=== PATIENT | male | born 1970 | race African-American/Black ===

== ENCOUNTER 2016-08-23 10:09 | Inpatient (IN) | payer OTHER ==
[2016-08-23 10:24] VITALS: BMI 27.3
--- NOTE | 2016-08-23 10:48 | HP ---
CIWA Score - CIWA Score Nausea/Vomitin-No Nausea/No Vomiting Muscle Tremors: 4-Moderate,w/Arms Extend Anxiety: 5 Agitation: 3 Paroxysmal Sweats: 1-Minimal Palms Moist Orientation: 0-Oriented Tacttile Disturbances: 3-Moderate Itch/Numb/Burn Auditory Disturbances: 0-None Visual Disturbances: 0-None Headache: 0-None Present CIWA-Ar Total Score: 16 Admission ROS BHS - HPI Chief Complaint: DETOX TX FOR ALCOHOL DEPENDENCE Allergies/Adverse Reactions: Allergies Allergy/AdvReac Type Severity Reaction Status Date / Time No Known Allergies Allergy Verified 08/23/16 10:33 History of Present Illness: 46 Y/O AA/MALE WITH A HX OF ALCOHOL DEPENDENCE SEEKING DETOX TX Exam Limitations: No Limitations - Ebola screening Have you traveled outside of the country in the last 21 days: No Have you had contact with anyone from an Ebola affected area: No Have you been sick,other than usual withdrawal symptoms: No Do you have a fever: No - Review of Systems Constitutional: Chills, Night Sweats, Weight Stable EENT: reports: Blurred Vision (DUE TO ELEVATED BP.), Tearing, Nose Congestion, Dental Problems (MISSING TOOTH) Respiratory: reports: No Symptoms reported Cardiac: reports: Lightheadedness (WHEN DRINKING TOO MUCH/WITHDRAWING) GI: reports: Diarrhea, Nausea, Poor Fluid Intake, Vomiting : reports: No Symptoms Reported Musculoskeletal: reports: Back Pain, Muscle Pain Integumentary: reports: No Symptoms Reported Neuro: reports: Headache, Tremors, Unsteady Gait, Dizziness Endocrine: reports: No Symptoms Reported Hematology: reports: No Symptoms Reported Psychiatric: reports: Orientated x3, Agitated, Anxious Other Systems: Reviewed and Negative Patient History - Patient Medical History Hx Anemia: No Hx Asthma: No Hx Chronic Obstructive Pulmonary Disease (COPD): No Hx Cardiac Disorders: No Hx Hypertension: Yes (ON NORVASC 10 MG DAILY) Hx Hypercholesterolemia: No HX Cerebrovascular Accident: No Hx Seizures: No Hx Diabetes: No Hx Gastrointestinal Disorders: No Hx Genitourinary Disorders: No Hx Sexually Transmitted Disorders: No Hx Renal Disease (ESRD): No Hx Thyroid Disease: No Hx Human Immunodeficiency Virus (HIV): No (NEGATIVE HX) Hx Hepatitis C: No Hx Depression: No Hx Suicide Attempt: No (DENIES) Hx Schizophrenia: No - Patient Surgical History Past Surgical History: No Hx Neurologic Surgery: No Hx Cataract Extraction: No Hx Cardiac Surgery: No Hx Lung Surgery: No Hx Breast Surgery: No Hx Breast Biopsy: No Hx Abdominal Surgery: No Hx Appendectomy: No Hx Cholecystectomy: No Hx Genitourinary Surgery: No Hx Orthopedic Surgery: No Anesthesia Reaction: No - PPD History Previous Implant?: Yes Documented Results: Negative w/o proof Implanted On Prior [facility] Admission?: No Results: TBD PPD to be Administered?: Yes - Reproductive History Patient is a Female of Child Bearing Age (11 -55 yrs old): No (MALE) - Smoking Cessation Smoking history: Current every day smoker Have you smoked in the past 12 months: Yes Aproximately how many cigarettes per day: 10 Hx Chewing Tobacco Use: No Initiated information on smoking cessation: Yes 'Breaking Loose' booklet given: 08/23/16 - Substance & Tx. History Hx Alcohol Use: Yes (BEER/VODKA) Hx Substance Use: No Substance Use Type: Alcohol Hx [facility] - Substances Abused Alcohol Route: Oral Frequency: Daily Amount used: 8 40 OZ BEERS Age of first use: 16 Date of Last Use: 08/23/16 Family Disease History - Family Disease History Family Disease History: Other: Father (HTN-), Mother (HTN-) Admission Physical Exam S - Vital Signs Vital Signs: Vital Signs - 24 hr 08/23/16 10:19 Temperature 97 F L Pulse Rate 102 H Respiratory 20 Rate Blood Pressure 162/120 - Physical General Appearance: Yes: Moderate Distress, Alcohol on Breath, Irritable, Anxious HEENTM: Yes: EOMI, Normocephalic, SHELLY, Pharynx Normal Respiratory: Yes: Chest Non-Tender, Lungs Clear, Normal Breath Sounds, No Respiratory Distress Neck: Yes: Supple, Trachea in good position Breast: Yes: Breast Exam Deferred Cardiology: Yes: Regular Rhythm, S1, S2, Tachycardia Abdominal: Yes: Normal Bowel Sounds, Non Tender, Soft Genitourinary: Yes: Other (N/C) Back: Yes: Within Normal Limits Musculoskeletal: Yes: full range of Motion, Gait Steady Extremities: Yes: Normal Range of Motion, Non-Tender, Tremors Neurological: Yes: print room worker II-XII NML intact, Fully Oriented, Alert, Normal Mood/ Affect Integumentary: Yes: Dry, Warm Lymphatic: Yes: Within Normal Limits - Diagnostic (1) Alcohol dependence with uncomplicated withdrawal Current Visit: Yes Status: Acute (2) Hypertension Current Visit: Yes Status: Chronic Qualifiers: Hypertension type: essential hypertension Qualified Code(s): I10 - Essential (primary) hypertension Cleared for Admission BHS - Detox or Rehab [facility] Level of Care: Medically Managed Detox Regimen/Protocol: Librium BHS Breath Alcohol Content Breath Alcohol Content: 0 Urine Drug Screen - Results Drug Screen Negative: Yes
[2016-08-23] MEDS ORDERED: ACETAMINOPHEN 325 MG TABLET (FP) PO PRN (10:53)
[2016-08-23] MEDS ORDERED: MAG HYDROX/AL HYDROX/SIMETH 30 ML UNIT-DOSE CUP PO PRN (10:53)
[2016-08-23] MEDS ORDERED: MAGNESIUM HYDROX 2400MG/30ML ORAL SUSPENSION 30 ML CUP PO PRN (10:53)
[2016-08-23] MEDS ORDERED: P-EPHED 60MG/TRIPROLIDI 2.5MG TABLET PO PRN (10:53)
[2016-08-23] MEDS ORDERED: chlordiazePOXIDE HCL 25 MG CAPSULE PO PRN (10:53)
[2016-08-23] MEDS ORDERED: MAGNESIUM CITRATE 300 ML BOTTLE PO PRN (10:53)
[2016-08-23] MEDS ORDERED: NICOTINE POLACRILEX 2 MG GUM BUC PRN (10:53)
[2016-08-23] MEDS ORDERED: guaiFENesin/D-METHORPHAN HB 10 ML UNIT-DOSE CUPS PO PRN (10:53)
[2016-08-23] MEDS ORDERED: LOPERAMIDE HCL 2 MG CAPSULE PO PRN (10:53)
[2016-08-23] MEDS ORDERED: IBUPROFEN 400 MG TABLET (FP) PO PRN (10:53)
[2016-08-23] MEDS ORDERED: MENTHOL/PHENOL 1 EACH UD MM PRN (10:53)
[2016-08-23] MEDS ORDERED: hydrOXYzine PAMOATE 25 MG CAPSULE (FP) PO PRN (10:53)
[2016-08-23] MEDS ORDERED: chlordiazePOXIDE HCL 25 MG CAPSULE PO ONE (12:43)
[2016-08-23] MEDS: amLODIPine BESYLATE 10 MG TABLET (FP) PO SCH (14:25)
[2016-08-23] MEDS: NICOTINE 14 MG/24 HOURS TOPICAL PATCH TD SCH (14:26)
--- NOTE | 2016-08-23 16:07 | EKG ---
Test Reason : Blood Pressure : / mmHG Vent. Rate : 089 BPM Atrial Rate : 089 BPM P-R Int : 134 ms QRS Dur : 098 ms QT Int : 378 ms P-R-T Axes : 067 031 037 degrees QTc Int : 459 ms NORMAL SINUS RHYTHM VOLTAGE CRITERIA FOR LEFT VENTRICULAR HYPERTROPHY ABNORMAL ECG NO PREVIOUS ECGS AVAILABLE Confirmed by ZENOBIA ARECHIGA, EH ([id number]) on 08/23/2016 4:06:47 PM Referred By: Confirmed By:EH FREGOSO MD
[2016-08-23] MEDS: chlordiazePOXIDE HCL 25 MG CAPSULE PO SCH ×2 (17:36→22:17)
[2016-08-23] MEDS: THIAMINE HCL 100 MG TABLET (FP) PO SCH (22:17)
[2016-08-23] MEDS: diphenhydrAMINE HCL 50 MG CAPSULE PO PRN (22:18)
[2016-08-24] MEDS: chlordiazePOXIDE HCL 25 MG CAPSULE PO SCH ×4 (05:32→22:05)
--- NOTE | 2016-08-24 09:53 | PN ---
[facility] CIWA - CIWA Score Nausea/Vomitin-No Nausea/No Vomiting Muscle Tremors: 4-Moderate,w/Arms Extend Anxiety: 4-Mod. Anxious/Guarded Agitation: 4-Moderately Restless Paroxysmal Sweats: 1-Minimal Palms Moist Orientation: 0-Oriented Tacttile Disturbances: 3-Moderate Itch/Numb/Burn Auditory Disturbances: 0-None Visual Disturbances: 0-None Headache: 0-None Present CIWA-Ar Total Score: 16 BHS Progress Note (SOAP) Subjective: ANXIETY,TREMORS,SWEATS,INTERMITTENT SLEEP. Objective: 08/24/16 09:53 Vital Signs Temperature 96.0 F L 08/24/16 09:42 Pulse Rate 110 H 08/24/16 09:42 Respiratory Rate 20 08/24/16 09:42 Blood Pressure 145/106 08/24/16 09:42 O2 Sat by Pulse Oximetry (%) LABS PENDING Assessment: 08/24/16 09:53 WITHDRAWAL SX Plan: CONTINUE DETOX
[2016-08-24 10:00] LABS: MCHC 33.2 g/dl (32.0-35.9); MEAN CELL VOLUME 96.6 fl (80-96); MEAN PLT VOLUME 9.5 fl (7.5-11.1); PLATELET COUNT 199 K/MM3 (134-434); WHITE BLOOD COUNT 6.8 K/mm3 (4.0-10.0)
[2016-08-24] MEDS: amLODIPine BESYLATE 10 MG TABLET (FP) PO SCH (10:07)
[2016-08-24] MEDS: PRENATAL VITAMINS W/ FOLIC ACID TABLET (FP) PO SCH (10:07)
[2016-08-24] MEDS: NICOTINE 14 MG/24 HOURS TOPICAL PATCH TD SCH (10:07)
[2016-08-24 11:02] LABS: ALBUMIN 4.5 g/dl (3.4-5.0); ALK PHOS 65 U/L (45-117); ANION GAP 10 (8-16); BILIRUBIN,TOTAL 1.1 mg/dL (0.2-1.0); CALCIUM 9.2 mg/dL (8.5-10.1); CO2 25 mmol/L (21-32); CREATININE 0.9 mg/dL (0.7-1.3); GLUCOSE,RANDOM 105 mg/dL (74-106); SGOT/AST 42 U/L (15-37); SGPT/ALT 47 U/L (12-78); TOT PROT 8.1 g/dl (6.4-8.2)
[2016-08-24 11:30] LABS: SICKLE CELL SCREEN NEGATIVE (NEGATIVE)
[2016-08-24 20:29] LABS: URINE APPEARANCE CLEAR; URINE BILIRUBIN NEGATIVE (NEGATIVE); URINE BLOOD NEGATIVE (NEGATIVE); URINE COLOR YELLOW; URINE GLUCOSE (UA) 1+ (NEGATIVE); URINE KETONE NEGATIVE (NEGATIVE); URINE LEUK ESTERASE NEGATIVE (NEGATIVE); URINE NITRITE NEGATIVE (NEGATIVE); URINE UROBILINOGEN NEGATIVE E.U./dl (0.2-1.0)
[2016-08-24 20:30] LABS: URINE PROTEIN 1+ (NEGATIVE)
[2016-08-24 20:39] LABS: URINE MUCUS RARE; URINE RBC <1 /hpf (0-3); URINE WBC 1 /hpf (3-5)
[2016-08-24] MEDS: diphenhydrAMINE HCL 50 MG CAPSULE PO PRN (22:05)
[2016-08-24] MEDS: THIAMINE HCL 100 MG TABLET (FP) PO SCH (22:05)
[2016-08-25] MEDS: chlordiazePOXIDE HCL 25 MG CAPSULE PO SCH ×2 (05:53→10:17)
--- NOTE | 2016-08-25 08:56 | PN ---
[facility] CIWA - CIWA Score Nausea/Vomitin-No Nausea/No Vomiting Muscle Tremors: 4-Moderate,w/Arms Extend Anxiety: 4-Mod. Anxious/Guarded Agitation: 4-Moderately Restless Paroxysmal Sweats: 1-Minimal Palms Moist Orientation: 0-Oriented Tacttile Disturbances: 3-Moderate Itch/Numb/Burn Auditory Disturbances: 0-None Visual Disturbances: 0-None Headache: 0-None Present CIWA-Ar Total Score: 16 BHS Progress Note (SOAP) Subjective: ANXIETY,SWEATS,FATIGUE. Objective: 08/25/16 08:56 Vital Signs Temperature 96.7 F L 08/25/16 06:47 Pulse Rate 94 H 08/25/16 06:47 Respiratory Rate 18 08/25/16 06:47 Blood Pressure 131/97 08/25/16 06:47 O2 Sat by Pulse Oximetry (%) Laboratory Last Values WBC 6.8 K/mm3 (4.0-10.0) 08/24/16 05:50 RBC 4.59 M/mm3 (4.00-5.60) 08/24/16 05:50 Hgb 14.7 GM/dL (11.7-16.9) 08/24/16 05:50 Hct 44.4 % (35.4-49) 08/24/16 05:50 MCV 96.6 fl (80-96) H 08/24/16 05:50 MCHC 33.2 g/dl (32.0-35.9) 08/24/16 05:50 RDW 15.0 % (11.9-15.9) 08/24/16 05:50 Plt Count 199 K/MM3 (134-434) 08/24/16 05:50 MPV 9.5 fl (7.5-11.1) 08/24/16 05:50 Sickle Cell Screen Negative (NEGATIVE) 08/24/16 05:50 Sodium 137 mmol/L (136-145) 08/24/16 05:50 Potassium 4.2 mmol/L (3.5-5.1) 08/24/16 05:50 Chloride 102 mmol/L (98-107) 08/24/16 05:50 Carbon Dioxide 25 mmol/L (21-32) 08/24/16 05:50 Anion Gap 10 (8-16) 08/24/16 05:50 BUN 8 mg/dL (7-18) 08/24/16 05:50 Creatinine 0.9 mg/dL (0.7-1.3) 08/24/16 05:50 Creat Clearance w eGFR > 60 (>60) 08/24/16 05:50 Random Glucose 105 mg/dL (74-106) 08/24/16 05:50 Calcium 9.2 mg/dL (8.5-10.1) 08/24/16 05:50 Total Bilirubin 1.1 mg/dL (0.2-1.0) H 08/24/16 05:50 AST 42 U/L (15-37) H 08/24/16 05:50 ALT 47 U/L (12-78) 08/24/16 05:50 Alkaline Phosphatase 65 U/L (45-117) 08/24/16 05:50 Total Protein 8.1 g/dl (6.4-8.2) 08/24/16 05:50 Albumin 4.5 g/dl (3.4-5.0) 08/24/16 05:50 Urine Color Yellow 08/24/16 19:00 Urine Appearance Clear 08/24/16 19:00 Urine pH 7.0 (5.0-8.0) 08/24/16 19:00 Ur Specific [place] 1.019 (1.001-1.035) 08/24/16 19:00 Urine Protein 1+ (NEGATIVE) H 08/24/16 19:00 Urine Glucose (UA) 1+ (NEGATIVE) H 08/24/16 19:00 Urine Ketones Negative (NEGATIVE) 08/24/16 19:00 Urine Blood Negative (NEGATIVE) 08/24/16 19:00 Urine Nitrite Negative (NEGATIVE) 08/24/16 19:00 Urine Bilirubin Negative (NEGATIVE) 08/24/16 19:00 Urine Urobilinogen Negative E.U./dl (0.2-1.0) 08/24/16 19:00 Ur Leukocyte Esterase Negative (NEGATIVE) 08/24/16 19:00 Urine RBC <1 /hpf (0-3) 08/24/16 19:00 Urine WBC 1 /hpf (3-5) 08/24/16 19:00 Ur Epithelial Cells Rare /hpf (FEW) 08/24/16 19:00 Urine Mucus Rare 08/24/16 19:00 RPR Titer Nonreactive (NONREACTIVE) 08/24/16 05:50 Assessment: 08/25/16 08:56 WITHDRAWAL SX Plan: CONTINUE DETOX
[2016-08-25 09:42] VITALS: BP 137/97; PULSE 104; TEMP 97.1
[2016-08-25] MEDS: NICOTINE 14 MG/24 HOURS TOPICAL PATCH TD SCH (10:17)
[2016-08-25] MEDS: amLODIPine BESYLATE 10 MG TABLET (FP) PO SCH (10:17)
[2016-08-25] MEDS: PRENATAL VITAMINS W/ FOLIC ACID TABLET (FP) PO SCH (10:17)
--- NOTE | 2016-08-25 13:00 | DS ---
[facility] Detox Discharge Summary Admission Date: 08/23/16 Discharge Date: 08/25/16 - History Present History: Alcohol Dependence Additional Comments: PT DECLINED TO CONTINUE WITH DETOX STATING HIS WANTS HIM TO COME HOME RIGHT AWAY. Pertinent Past History: HTN - Physical Exam Results Vital Signs: Vital Signs Temperature 97.1 F L 08/25/16 09:41 Pulse Rate 104 H 08/25/16 09:41 Respiratory Rate 20 08/25/16 09:41 Blood Pressure 137/97 08/25/16 09:41 O2 Sat by Pulse Oximetry (%) Pertinent Admission Physical Exam Findings: WITHDRAWAL SX - Medication Discharge Medications: Ambulatory Orders Amlodipine Besylate [Norvasc -] 10 mg PO DAILY 08/23/16 - Diagnosis (1) Alcohol dependence with uncomplicated withdrawal Status: Acute (2) Hypertension Status: Chronic Qualifiers: Hypertension type: essential hypertension Qualified Code(s): I10 - Essential (primary) hypertension - AMA Did Patient Leave Against Medical Advice: Yes (AMA)
[2016-08-25] MEDS ORDERED: chlordiazePOXIDE 5 MG CAPSULE PO SCH (17:00)
[2016-08-26] MEDS ORDERED: chlordiazePOXIDE HCL 10 MG CAPSULE PO SCH (17:00)
== END 2016-08-25 11:45 | disposition left against medical advice (07) | DRG 770 ==
LOC: YASAS 10:09 → Y3N 12:41
PROVIDERS: ADMIT Internal Medicine; ATTEND Internal Medicine
PROC: HZ2ZZZZ Detoxification Services for Substance Abuse Treatment (ICD-10-PCS; principal; 2016-08-23)
DX: F10.230 Alcohol dependence with withdrawal, uncomplicated (principal); F17.210 Nicotine dependence, cigarettes, uncomplicated; I10 Essential (primary) hypertension; R00.0 Tachycardia, unspecified
CPT/HCPCS: 36415; 80053; 81003; 81015; 85027; 85660; 86593; 93005; 93010